=== PATIENT | male | born 1980 | race Caucasian/White ===

== ENCOUNTER → 2016-12-12 | Outpatient (CLI) | payer OTHER ==
[~2016-12-12] MED LIST: NO HOME MEDICATIONS; SEPTRA DS 8001 TAB PO
== END ==
LOC: ZCOL.LAB 16:24
DX: Z02.89 Encounter for other administrative examinations (principal)

== ENCOUNTER → 2018-04-18 15:45 | Outpatient (RCR) | payer OTHER | END | disposition home or self-care (01) | LOC: WSPT 03-22 07:49 | DX: S82.245D Nondisplaced spiral fracture of shaft of left tibia, subsequent encounter for closed fracture with routine healing (principal); X50.1XXD Overexertion from prolonged static or awkward postures, subsequent encounter; W23.1XXD Caught, crushed, jammed, or pinched between stationary objects, subsequent encounter; Y99.0 Civilian activity done for income or pay; Z96.7 Presence of other bone and tendon implants ==

== ENCOUNTER → 2018-10-30 | Outpatient (CLI) | payer OTHER | LOC: COL.RAD 12:03 | DX: M79.89 Other specified soft tissue disorders (principal); Z87.81 Personal history of (healed) traumatic fracture ==

== ENCOUNTER → 2019-02-13 | Outpatient (CLI) | payer OTHER | LOC: ZCOL.LAB 10:43 → ZLAB.STJ 10:43 | DX: L97.529 Non-pressure chronic ulcer of other part of left foot with unspecified severity (principal); R60.0 Localized edema; R23.8 Other skin changes ==

== ENCOUNTER → 2019-07-21 | Outpatient (CLI) | payer OTHER | LOC: COL.VAS 14:37 | DX: T82.867A Thrombosis due to cardiac prosthetic devices, implants and grafts, initial encounter (principal); I82.532 Chronic embolism and thrombosis of left popliteal vein; I83.92 Asymptomatic varicose veins of left lower extremity ==

== ENCOUNTER → 2019-07-29 | Outpatient (CLI) | payer OTHER | LOC: ZCOL.LAB 12:39 | DX: R23.8 Other skin changes (principal); R60.0 Localized edema ==

== ENCOUNTER → 2019-09-26 | Outpatient (CLI) | payer SELFPAY | LOC: ZCOL.LAB 14:01 | DX: S91.332A Puncture wound without foreign body, left foot, initial encounter (principal); R23.8 Other skin changes; I80.9 Phlebitis and thrombophlebitis of unspecified site; R60.0 Localized edema ==

== ENCOUNTER → 2019-10-21 | Outpatient (CLI) | payer SELFPAY | LOC: ZCOL.LAB 13:28 | DX: I83.029 Varicose veins of left lower extremity with ulcer of unspecified site (principal); R23.8 Other skin changes ==

== ENCOUNTER 2020-02-18 08:30 | Outpatient (RCR) | payer OTHER | END 2020-04-18 | disposition home or self-care (01) | LOC: WSPT | DX: I89.0 Lymphedema, not elsewhere classified (principal); S89.90XA Unspecified injury of unspecified lower leg, initial encounter ==

== ENCOUNTER → 2020-03-31 | Outpatient (CLI) | payer OTHER | LOC: ZCOL.LAB 17:02 | DX: I83.003 Varicose veins of unspecified lower extremity with ulcer of ankle (principal); T14.8XXA Other injury of unspecified body region, initial encounter ==

== ENCOUNTER → 2021-05-06 | Outpatient (CLI) | payer OTHER | LOC: ZCOL.LAB 18:33 | DX: I87.2 Venous insufficiency (chronic) (peripheral) (principal) ==

== ENCOUNTER → 2021-10-26 | Outpatient (CLI) | payer OTHER | LOC: ZCOL.LAB 16:15 | DX: I87.2 Venous insufficiency (chronic) (peripheral) (principal); L97.909 Non-pressure chronic ulcer of unspecified part of unspecified lower leg with unspecified severity; I89.0 Lymphedema, not elsewhere classified; R60.0 Localized edema ==